=== PATIENT | female | born 1955 | race Caucasian/White ===

== ENCOUNTER 2025-04-07 14:07 | Outpatient (CLI) | payer MEDICARE, OTHER ==
--- NOTE | 2025-04-08 03:18 | CONSULTATION ---
DATE OF CONSULTATION: 04/07/2025 DICTATING PHYSICIAN: Donna Wilson M.S., [facility]-[employer] REPA[employer] INSPECTOR MODIFIED BARIUM SWALLOW STUDY REPORT REFERRING PHYSICIAN: Jaret Madsen MD. HISTORY OF PRESENT ILLNESS: The patient is a 69-year-old female who consents to this evaluation. In history obtained from the patient and medical records, the patient reports symptoms of dysphagia including feeling as if items get stuck at the level of her larynx. She reports that items such as bread will get lodged to the point where it can cut off her breathing. She has to drink a large amount of water for the food item to then go down. She notes that she can no longer chew and swallow in a reclined position and that she gags and chokes on her saliva twice weekly. The patient reports that it feels as if her throat is restricted and that this has occurred for the last 2 years and has gotten progressively worse with time. CURRENT DIET: In terms of caffeine, the patient drinks 6 cups of coffee on a daily basis and will occasionally also have a glass of tea. She does not utilize tobacco products. She has 1 glass of wine every 3 months. She does not consume chocolate. In terms of dairy products, the patient has milk in her coffee and cheese on a daily basis. A typical breakfast consists of a hard-boiled egg or scrambled egg. She does not snack in the morning. Lunch may be a hard-boiled egg or apples and cheese. She snacks in the afternoon on a cheese stick. Dinner is eaten between 5:30 and 7:00 p.m. and is a protein such as chicken or fish with a starch such as potatoes or rice. She does not have dessert and goes to bed at 10 p.m. MEDICATIONS: Trazodone 50 mg 2 tablets once daily orally, Premarin cream 0.625 g, 5 g 2-3 times a week, cyclosporine 0.05% 1 drop in each eye twice daily. PARAMETERS: The patient is seated in a lateral 90-degree view and administered the usual protocol of thin and nectar-thick liquids, puree and solid consistencies, as well as self-regulated boluses of thin liquids from a cup. RESULTS: In the oral stage of the swallow, lingual strength is mildly reduced. The patient utilizes a lingual pumping motion to propel the boluses from the anterior to the posterior oral cavity for the second swallow. There is a mild to moderate oral residue noted at the level of the tongue base following the initial swallow boluses. In the pharyngeal stage of the swallow, tongue base retraction is mild to moderately reduced. Swallow initiation is delayed to the level of the piriform for 1 mL, 3 mL, 5 mL and self-regulated boluses of thin liquids from the cup and is delayed to the level of the vallecula for 3 mL and 5 mL nectar-thick liquid boluses. Anterior movement of the posterior pharyngeal wall was observed. Elevation of the hyothyroid complex is accomplished with mild to moderately reduced anterior movement of the hyoid, mildly reduced superior movement of the hyoid, and full epiglottic inversion. There is a mild pharyngeal residue noted after the tail of the bolus pass. PES opening is within functional limits. It was noted that the patient had difficulty with initiating the secondary swallow for boluses. The patient would have a residue in the oral and/or pharyngeal cavity. You could see that the swallowing mechanism was attempting to restart and would take several tries and then she was able to initiate the second swallow. In terms of airway safety, at no time was the patient noted to penetrate or aspirate on any of the bolus sizes or consistencies. It was noted in the lateral plane that there was a residue below the PES opening for puree and solid consistencies. ANTERIOR-POSTERIOR VIEW: In the AP plane, the bolus split symmetrically between the piriform sinuses and there was proximal movement of the boluses to the level of the midsternum. IMPRESSION: The patient demonstrates what appears to be a moderate pharyngoesophageal stage swallowing disorder characterized by uxkp-bv-cedjukyrte reduced tongue base retraction, delayed swallow initiation to the level of the piriforms for the thin liquid boluses and to the level of the vallecula for the nectar-thick liquid boluses. Swallow initiation is triggered by cranial nerve 9 at the level of the faucial arches and so neurological reason for delayed swallow initiation cannot be ruled out. The patient also demonstrates difficulty with initiating a secondary swallow and proximal movement of the boluses in the AP view. DIAGNOSES: R13.14, dysphagia, pharyngoesophageal phase, T17.920A, food in respiratory tract causing asphyxiation. PATIENT EDUCATION: Immediately following the modified barium swallow study, the patient was able to view the results. The normal anatomy of the swallowing mechanism was revealed. The patient was able to see how the current status of the swallowing mechanism has decreased her ability to swallow normally. She was educated on a recommendation for a Neurology consult regarding the delayed swallow initiation. The combination of the delayed swallow initiation for the primary swallow and difficulty with secondary swallow initiation means that a neurological component cannot be ruled out and so a Neurology consult will be recommended to further determine neurological component versus muscle tension dysphagia. She was educated that following consult, she may return for swallowing therapy should results of the consult provide an etiology that would indicate speech therapy. The patient was also educated on dietary modifications for laryngopharyngeal reflux disease regarding the proximal movement of the boluses observed, especially the recommendation to decrease caffeine and coffee intake. RECOMMENDATIONS: * It is recommended that the patient be referred for a Neurology consult due to the delayed swallow initiation that was observed and difficulty initiating a secondary swallow in order to further determine if these components are due to a neurological component or a muscle tension dysphagia. * Following neurology consult, it may be warranted for the pt to return for speech/ swallowing therapy. * It is recommended that the patient follow the aforementioned dietary modifications for laryngopharyngeal reflux disease. If after the patient eliminates the 6 cups of coffee from her daily intake, she continues to have symptoms of laryngopharyngeal reflux disease, she may be considered for an upper GI. LONG-TERM GOALS: * The patient will maintain adequate hydration/nutrition with optimum safety and efficiency of swallow function on p.o. intake without overt signs and symptoms of aspiration for the highest possible diet level. PROGNOSIS: Prognosis for the patient is fair to good considering unknown reason for delayed swallow initiation. Once that reason is further determined, the patient may return for swallowing therapy should results of Neurology evaluation warrant a return to swallowing therapy. FUNCTIONAL ORAL INTAKE: The FOIS was administered to establish and document a change in the functional eating activities of this patient over time. This is a 7-point scale with 1 indicating no oral intake and totally tube dependent and 7 indicating total oral intake with no restrictions. This patient received a 6 which indicates she has a total oral diet with multiple consistencies without special preparation but with specific food limitations and precautions. G-CODE: [id number]. Thank you very much for asking me to participate in the care of this kind patient. Should you have any questions regarding this evaluation or recommendations, please do not hesitate to contact me at [phone]. During this examination, 3:21 minutes of fluoroscopy time and 9.64 cAK and mGy were utilized. Donna Wilson M.S., [facility] REPA[employer]ER INSPECTOR TID: [id number] RECEIPT: [id number] SHO/ADRYAN RAMOS
== END 2025-04-07 23:59 | disposition home or self-care (01) ==
LOC: RAD 14:07
PROVIDERS: ATTEND Family Medicine
DX: T17.920A Food in respiratory tract, part unspecified causing asphyxiation, initial encounter (principal); R13.10 Dysphagia, unspecified; X58.XXXA Exposure to other specified factors, initial encounter; Y93.89 Activity, other specified; Y92.89 Other specified places as the place of occurrence of the external cause; Y99.8 Other external cause status
CPT/HCPCS: 74230